=== PATIENT | female | born 1970 | race Caucasian/White ===

== ENCOUNTER 2021-01-22 21:47 | Emergency (ER) | payer BC, OTHER ==
--- NOTE | 2021-01-22 22:41 | EDM.PDOC ---
ED HPI GENERAL MEDICAL PROBLEM - General Chief Complaint: Upper Extremity Injury/Pain Stated Complaint: Arm pain Time Seen by Provider: 01/22/21 22:00 Source of Information: Reports: Patient History Limitations: Reports: No Limitations - History of Present Illness INITIAL COMMENTS - FREE TEXT/NARRATIVE: She is brought to the emergency department by private vehicle for evaluation of an injury to her right elbow. She tripped and fell forward landing directly on the right elbow with the arm somewhat extended. She has pain mainly in the proximal forearm extending to the elbow. Pain is diffuse. Increased pain with movement of the elbow. No pain radiating down the arm. No numbness or tingling in the fingers. No pain in the shoulder or wrist. She denies any other injury. No previous injury to this elbow. - Related Data Allergies Allergy/AdvReac Type Severity Reaction Status Date / Time No Known Allergies Allergy Verified 01/22/21 21:49 Home Meds: Home Meds Levothyroxine [Synthroid] 100 mg PO DAILY 01/22/21 [History] Social & Family History - Tobacco Use Tobacco Use Status *Q: Never Tobacco User Second Hand Smoke Exposure: No - Caffeine Use Caffeine Use: Reports: Soda Review of Systems - Review of Systems Review Of Systems: See Below Constitutional: Denies: Chills, Fever Eyes: Denies: Blurred Vision Ears: Denies: Dizziness, Pain Respiratory: Denies: Shortness of Breath, Cough Cardiovascular: Denies: Chest Pain, Palpitations GI/Abdominal: Denies: Abdominal Pain, Nausea, Vomiting Musculoskeletal: Reports: No Symptoms, Joint Pain ED EXAM, GENERAL - Physical Exam Exam: See Below Free Text/Narrative:: Right elbow: Mild diffuse swelling. No bruising or other discoloration. No warmth to touch. Moderate tenderness diffusely in the proximal forearm more severe over the radial head. No posterior tenderness. No palpable defect. Range of motion 20-135 degrees with increased pain in the extremes. Decreased pronation and supination limited by pain. No laxity. Normal radial pulse and capillary refill. Normal light touch sensation in the forearm and hand. Right shoulder: No swelling or deformity. No discoloration. No tenderness. Full range of motion without pain. Right wrist: No swelling or deformity. No discoloration. No tenderness. Full range of motion without pain. Left elbow: No swelling or deformity. No discoloration. No tenderness. Full range of motion without pain. Exam Limited By: No Limitations General Appearance: Alert, WD/WN Course - Vital Signs Last Recorded V/S: Last Vital Signs Temp 36.5 C 01/22/21 22:15 Pulse 70 01/22/21 22:15 Resp 18 01/22/21 22:15 BP 133/70 01/22/21 22:15 Pulse Ox 100 01/22/21 22:15 - Orders/Labs/Meds Orders: Active Orders 24 hr Category Date Time Status Elbow Min 3V Rt [CR] Stat Exams 01/22/21 22:12 Ordered - Radiology Interpretation Free Text/Narrative:: AP, lateral and oblique views of the right elbow. Findings: Questionable slight deformity in the radial neck. Positive sail sign. No obvious fracture. Departure - Departure Time of Disposition: 21:45 Disposition: Home, Self-Care 01 Condition: Good Clinical Impression: Nondisplaced fracture of neck of right radius, initial encounter for closed fracture, Fracture of elbow Clinical Impression: (Ruled Out): Nondisplaced fracture of neck of left radius, initial encounter for closed fracture - Discharge Information *PRESCRIPTION DRUG MONITORING PROGRAM REVIEWED*: Not Applicable *COPY OF PRESCRIPTION DRUG MONITORING REPORT IN PATIENT LUCILA: Not Applicable Instructions: Radial Head Fracture, [id number] Referrals: Iris Carl NP [Primary Care Provider] - Additional Instructions: Keep the right arm in the sling as much as possible. Frequent, nonpainful range of motion at the elbow. Gradual increase in activity as tolerated by pain. Apply ice to the elbow for 15 minutes 3-4 times daily. Ibuprofen 800 mg 3 times daily with food for 5 to 7 days. Tylenol as needed for additional pain control. Follow-up with primary provider for repeat x-ray in 10 to 14 days. Sepsis Event Note (ED) - Evaluation Sepsis Screening Result: No Definite Risk - Focused Exam Vital Signs: Vital Signs Temp Pulse Resp BP Pulse Ox 01/22/21 22:15 36.5 C 70 18 133/70 100 - Problem List & Annotations (1) Nondisplaced fracture of neck of right radius, initial encounter for closed fracture SNOMED Code(s): 34964934, 764964237 Code(s): S52.134A - NONDISP FX OF NECK OF RIGHT RADIUS, INIT FOR CLOS FX Status: Acute Current Visit: Yes - My Orders Last 24 Hours: My Active Orders 01/22/21 22:12 Elbow Min 3V Rt [CR] Stat - Assessment/Plan Last 24 Hours: My Active Orders 01/22/21 22:12 Elbow Min 3V Rt [CR] Stat Plan: She is given a sling. She will wear this as much as possible. Frequent, nonpainful range of motion at the elbow. Gradual increase in activity as tolerated by pain. Apply ice to the elbow for 15 minutes 3-4 times daily. Ibuprofen 800 mg 3 times daily with food for 5 to 7 days. Tylenol as needed for additional pain control. Follow-up with primary provider for repeat x-ray in 10 to 14 days.
== END 2021-01-22 23:00 | disposition home or self-care (01) ==
LOC: LL.ED 21:47
DX: S52.134A Nondisplaced fracture of neck of right radius, initial encounter for closed fracture (principal); Z79.899 Other long term (current) drug therapy; W01.0XXA Fall on same level from slipping, tripping and stumbling without subsequent striking against object, initial encounter
CPT/HCPCS: 73080-RT; 99283; 99283-25